=== PATIENT | male | born 1985 | race Caucasian/White ===

== ENCOUNTER 2018-05-18 07:27 | Emergency (ER) | payer BC, OTHER ==
[~2018-05-18 07:27] MED LIST: KET10 PO; LOR5/325 PO
--- NOTE | 2018-05-18 07:42 | ER Report ---
History and Physical Time Seen By MD: 07:42 Hx. of Stated Complaint: RLQ PAIN INTO BACK SUDDEN ONSET LAST NIGHT, VOMITING HPI/ROS 33-year-old otherwise healthy male presents with sudden onset of right sided flank pain that started at 0230 this morning. Also with episodes of vomiting. 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 He denies any abdominal pain. No dysuria or hematuria. No fever or chills. No trauma Remainder of the 14 system rev: Yes Allergies: Coded Allergies: No Known Drug Allergies (Unverified , 02/17/15) Home Meds Active Scripts Hydrocodone Bit/Acetaminophen (HYDROCODON-ACETAMINOPHEN 5-325) 1 Each Tablet, 1 EACH PO Q4H for 5 Days, #12 TAB Prov:KATARZYNA JOY MD 05/18/18 Ibuprofen (IBUPROFEN) 600 Mg Tablet, 1 TAB PO Q6H for 5 Days, #30 TAB Prov:KATARZYNA JOY MD 05/18/18 Ondansetron Hcl (ONDANSETRON HCL) 4 Mg Tablet, 4 MG PO Q4-6H for 3 Days, #14 TAB Prov:KATARZYNA JOY MD 05/18/18 Discontinued Scripts Hydrocodone Bit/Acetaminophen (HYDROCODON-ACETAMINOPHEN 5-325) 1 Each Tablet, 1- 2 EACH PO Q4-6H, #30 TAB Prov:DEANA KILPATRICK MD 02/27/15 Ketorolac Tromethamine (KETOROLAC TROMETHAMINE) 10 Mg Tab, 10 MG PO Q6H, #20 TAB Prov:DEANA KILPATRICK MD 02/27/15 Hydrocodone Bit/Acetaminophen (HYDROCODON-ACETAMINOPHEN 5-325) 1 Each Tablet, 1 EACH PO Q4-6H PRN for PAIN, #12 TAB 0 Refills TAKE ONE TABLET BY MOUTH EVERY 4-6 HOURS NEEDED FOR PAIN Prov:LUISITO CAMPBELL MD 02/17/15 Reviewed Nurses Notes: Yes Hx Smoking: No Smoking Status: Never Smoker Exposure to Second Hand Smoke?: No Hx Substance Use Disorder: No Hx Alcohol Use: No Constitutional Vital Sign - Last 24 Hours 05/18/18 05/18/18 05/18/18 05/18/18 07:34 07:36 07:57 08:00 Temp 98.3 Pulse 68 72 Resp 18 B/P (MAP) 141/96 141/96 (111) 126/93 (104) Pulse Ox 94 94 O2 Delivery Room Air 05/18/18 05/18/18 05/18/18 05/18/18 08:12 08:27 08:30 08:42 Pulse 67 68 72 B/P (MAP) 120/72 (88) Pulse Ox 94 95 96 05/18/18 05/18/18 05/18/18 08:57 09:00 09:12 Pulse 75 75 B/P (MAP) 115/88 (97) Pulse Ox 94 93 Physical Exam General Appearance: The patient is alert, has no immediate need for airway pr otection and no current signs of toxicity. Eyes: Pupils equal and round no injection. Respiratory: Chest is non tender, lungs are clear to auscultation. Cardiac: regular rate and rhythm Gastrointestinal: Abdomen is soft and non tender, no masses, bowel sounds normal. Musculoskeletal: No flank TTP Skin: No rashes or lesions. DIFFERENTIAL DIAGNOSIS: After history and physical exam differential diagnosis was considered for flank pain including but not limited to musculoskeletal causes, kidney stone, pyelonephritis, shingles, and intra-abdominal causes such as diverticulitis and appendicitis. Medical Decision Making Data Points Result Diagram: 05/18/18 0755 05/18/18 0755 Laboratory Hematology Test 05/18/18 07:55 05/18/18 09:44 Red Blood Count 5.67 M/uL (4.00-5.60) Mean Corpuscular Volume 89.7 fL (80.0-96.0) Mean Corpuscular Hemoglobin 31.4 pg (26.0-33.0) Mean Corpuscular Hemoglobin Concent 35.0 g/dL (32.0-36.0) Red Cell Distribution Width 13.3 % (11.5-14.5) Mean Platelet Volume 11.2 fL (7.2-11.1) Neutrophils (%) (Auto) 70.8 % (39.4-72.5) Lymphocytes (%) (Auto) 22.3 % (17.6-49.6) Monocytes (%) (Auto) 6.4 % (4.1-12.4) Eosinophils (%) (Auto) 0.2 % (0.4-6.7) Basophils (%) (Auto) 0.3 % (0.3-1.4) Nucleated RBC Relative Count (auto) 0.0 /100WBC Neutrophils # (Auto) 7.3 K/uL (2.0-7.4) Lymphocytes # (Auto) 2.3 K/uL (1.3-3.6) Monocytes # (Auto) 0.7 K/uL (0.3-1.0) Eosinophils # (Auto) 0.0 K/uL (0.0-0.5) Basophils # (Auto) 0.0 K/uL (0.0-0.1) Nucleated RBC Absolute Count (auto) 0.00 K/uL Sodium Level 141 mmol/L (137-145) Potassium Level 3.8 mmol/L (3.5-5.0) Chloride Level 105 mmol/L (98-107) Carbon Dioxide Level 25 mmol/L (22-30) Blood Urea Nitrogen 10 mg/dl (9-21) Creatinine 0.80 mg/dl (0.66-1.25) Glomerular Filtration Rate Calc > 60.0 Random Glucose 122 mg/dl (75-110) Calcium Level 9.4 mg/dl (8.4-10.2) Total Bilirubin 0.7 mg/dl (0.2-1.3) Aspartate Amino Transf (AST/SGOT) 43 U/L (0-35) Alanine Aminotransferase (ALT/SGPT) 73 U/L (0-56) Alkaline Phosphatase 57 U/L (0-126) Total Protein 7.3 g/dl (6.3-8.2) Albumin 4.2 g/dl (3.5-5.0) Lipase 54 U/L (23-300) Urine Color Yellow Urine Clarity Slightly-cloudy Urine pH 6.0 pH (4.8-9.5) Urine Specific [place] 1.016 Urine Protein Negative mg/dL (NEGATIVE) Urine Glucose (UA) Negative mg/dL (NEGATIVE) Urine Ketones Negative mg/dL (NEGATIVE) Urine Blood Large (NEGATIVE) Urine Nitrite Negative (NEGATIVE) Urine Bilirubin Negative (NEGATIVE) Urine Urobilinogen Negative mg/dL (0.2-1.9) Urine Leukocyte Esterase Negative (NEGATIVE) Urine RBC 92 /HPF (0-2/HPF) Urine WBC 8 /HPF (0-5/HPF) Urine Squamous Epithelial Cells None /LPF (</=FEW) Urine Bacteria Few /HPF (NONE-FEW) Urine Mucus Few /HPF (NONE-FEW) Chemistry Test 05/18/18 07:55 05/18/18 09:44 White Blood Count 10.3 k/uL (4.5-11.0) Red Blood Count 5.67 M/uL (4.00-5.60) Hemoglobin 17.8 g/dL (14.0-18.0) Hematocrit 50.9 % (42.0-52.0) Mean Corpuscular Volume 89.7 fL (80.0-96.0) Mean Corpuscular Hemoglobin 31.4 pg (26.0-33.0) Mean Corpuscular Hemoglobin Concent 35.0 g/dL (32.0-36.0) Red Cell Distribution Width 13.3 % (11.5-14.5) Platelet Count 215 K/uL (150-450) Mean Platelet Volume 11.2 fL (7.2-11.1) Neutrophils (%) (Auto) 70.8 % (39.4-72.5) Lymphocytes (%) (Auto) 22.3 % (17.6-49.6) Monocytes (%) (Auto) 6.4 % (4.1-12.4) Eosinophils (%) (Auto) 0.2 % (0.4-6.7) Basophils (%) (Auto) 0.3 % (0.3-1.4) Nucleated RBC Relative Count (auto) 0.0 /100WBC Neutrophils # (Auto) 7.3 K/uL (2.0-7.4) Lymphocytes # (Auto) 2.3 K/uL (1.3-3.6) Monocytes # (Auto) 0.7 K/uL (0.3-1.0) Eosinophils # (Auto) 0.0 K/uL (0.0-0.5) Basophils # (Auto) 0.0 K/uL (0.0-0.1) Nucleated RBC Absolute Count (auto) 0.00 K/uL Glomerular Filtration Rate Calc > 60.0 Calcium Level 9.4 mg/dl (8.4-10.2) Total Bilirubin 0.7 mg/dl (0.2-1.3) Aspartate Amino Transf (AST/SGOT) 43 U/L (0-35) Alanine Aminotransferase (ALT/SGPT) 73 U/L (0-56) Alkaline Phosphatase 57 U/L (0-126) Total Protein 7.3 g/dl (6.3-8.2) Albumin 4.2 g/dl (3.5-5.0) Lipase 54 U/L (23-300) Urine Color Yellow Urine Clarity Slightly-cloudy Urine pH 6.0 pH (4.8-9.5) Urine Specific [place] 1.016 Urine Protein Negative mg/dL (NEGATIVE) Urine Glucose (UA) Negative mg/dL (NEGATIVE) Urine Ketones Negative mg/dL (NEGATIVE) Urine Blood Large (NEGATIVE) Urine Nitrite Negative (NEGATIVE) Urine Bilirubin Negative (NEGATIVE) Urine Urobilinogen Negative mg/dL (0.2-1.9) Urine Leukocyte Esterase Negative (NEGATIVE) Urine RBC 92 /HPF (0-2/HPF) Urine WBC 8 /HPF (0-5/HPF) Urine Squamous Epithelial Cells None /LPF (</=FEW) Urine Bacteria Few /HPF (NONE-FEW) Urine Mucus Few /HPF (NONE-FEW) Urinalysis Test 05/18/18 09:44 Urine Color Yellow Urine Clarity Slightly-cloudy Urine pH 6.0 pH (4.8-9.5) Urine Specific [place] 1.016 Urine Protein Negative mg/dL (NEGATIVE) Urine Glucose (UA) Negative mg/dL (NEGATIVE) Urine Ketones Negative mg/dL (NEGATIVE) Urine Blood Large (NEGATIVE) Urine Nitrite Negative (NEGATIVE) Urine Bilirubin Negative (NEGATIVE) Urine Urobilinogen Negative mg/dL (0.2-1.9) Urine Leukocyte Esterase Negative (NEGATIVE) Urine RBC 92 /HPF (0-2/HPF) Urine WBC 8 /HPF (0-5/HPF) Urine Squamous Epithelial Cells None /LPF (</=FEW) Urine Bacteria Few /HPF (NONE-FEW) Urine Mucus Few /HPF (NONE-FEW) EKG/Imaging Imaging Results: CT scan of the abdomen and pelvis was obtained. The results of the study are 3mm ureteral calculi at the right UVJ. The study was read by the radiologist. I viewed the images myself on the PACS system. ED Course/Re-evaluation ED Course Sudden onset of right flank pain at 0230 this morning. Also with nausea and vomiting. The pain waxed and waned throughout the morning. No pain in the emergency department. No abdominal pain or fever chills. History and CT scan consistent with the 3 mm stone that is seen at the right UVJ. The patient has been pain free during his stay in the emergency department after receiving Toradol and Zofran for nausea. I will discharge him with ibuprofen, Zofran, and Vicodin in case the pain returns and is not relieved with NSAIDs. He'll follow- up with his primary care physician. Decision to Disposition Date: May 18, 2018 Decision to Disposition Time: 12:26 Depart Departure Latest Vital Signs Vital Signs Date Time Temp Pulse Resp B/P (MAP) Pulse Ox O2 Delivery O2 Flow Rate FiO2 05/18/18 09:12 75 93 05/18/18 09:00 115/88 (97) 05/18/18 07:34 98.3 18 Room Air Impression: Primary Impression: Ureteral calculus, right Condition: Improved Disposition: HOME OR SELF-CARE New Scripts Hydrocodone Bit/Acetaminophen (HYDROCODON-ACETAMINOPHEN 5-325) 1 Each Tablet 1 EACH PO Q4H for 5 Days, #12 TAB Prov: KATARZYNA JOY MD 05/18/18 Ibuprofen (IBUPROFEN) 600 Mg Tablet 1 TAB PO Q6H for 5 Days, #30 TAB Prov: KATARZYNA JOY MD 05/18/18 Ondansetron Hcl (ONDANSETRON HCL) 4 Mg Tablet 4 MG PO Q4-6H for 3 Days, #14 TAB Prov: KATARZYNA JOY MD 05/18/18 Patient Instructions: Kidney Stones (ED) KATARZYNA JOY MD May 18, 2018 07:42
[2018-05-18] MEDS ORDERED: ONDANSETRON 4 MG/2 ML VIAL IVP ONE (07:45)
[2018-05-18] MEDS ORDERED: KETOROLAC 30 MG/ML VIAL IVP ONE (07:45)
[2018-05-18] MEDS ORDERED: NS(*) 0.9% 1000 ML BAG 1,000 ML IV ONE (07:45)
[2018-05-18 08:11] LABS: PLATELET COUNT, AUTOMATED 215 K/uL (150-450)
--- NOTE | 2018-05-18 10:24 | RADIOLOGY IMAGING REPORT ---
FACILITY: [facility] PATIENT NAME: Leonardo Benitez : 1985 MR: [id number] V: [id number] EXAM DATE: ORDERING PHYSICIAN: KATARZYNA JOY TECHNOLOGIST: Location: [facility] [place] Patient: Leonardo Benitez : 1985 Visit/Account:[id number] Date of Sevice: 05/18/2018 ABDOMEN/PELVIS W/O CONTRAST HISTORY: Sudden onset right flank pain and nausea/vomiting. TECHNIQUE: CT abdomen and pelvis without intravenous contrast. One of the following dose optimization techniques was utilized in the performance of this exam: Autom ated exposure control; adjustment of the mA and/or kV according to the patient's size; or use of an i terative reconstruction technique. Specific details can be referenced in the facility's radiology C T exam operational policy. CONTRAST: None. Please note, lack of IV contrast limits evaluation of solid organs. COMPARISON: None. FINDINGS: Visualized lung bases: Mild basilar atelectasis. Hepatobiliary: Suggestion of mild hepatic steatosis. Otherwise negative. Spleen: Negative. Adrenals: Negative. Pancreas: Negative. Kidneys/: There at least 2 punctate nonobstructing calculi within the left kidney measuring up to 2 mm. Note is made of a duplicated right collecting system which joins at or just proximal to the UV J. There is a 3 mm calculus within one of the right ureters proximally, likely the lower pole moiety as there is mild pelviectasis of the inferior collecting system with possible minimal hydronephrosis . No left ureteral calculi identified. No bladder calculi. GI: Negative. Appendix is unremarkable. Vessels/spaces/nodes: Negative. Bones/soft tissues: Postoperative changes from right internal hernia repair. No evidence for residu al/recurrent hernia. There is a small fat-containing left inguinal hernia. Partial visualization of mild/moderate right gynecomastia. IMPRESSION: 1. 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 2. There are least 2 punctate nonobstructing left-sided nephrolithiasis measuring up to 2 mm. 3. Additional incidental/chronic findings, as above. Report Dictated By: Yash Vargas MD at 05/18/2018 10:15 AM Report E-Signed By: Yash Vargas MD at 05/18/2018 10:20 AM [id number]
[2018-05-18] MEDS ORDERED: IBUP600T22 PO (12:34)
[2018-05-18] MEDS ORDERED: ONDA-2 PO (12:34)
[2018-05-18] MEDS ORDERED: HYDR-385 PO (12:34)
[2018-05-18 12:38] VITALS: BP 149/92
== END 2018-05-18 12:44 | disposition home or self-care (01) ==
LOC: ER 07:46
DX: N20.1 Calculus of ureter (principal)
CPT/HCPCS: 74176; 81001; 83690; 85025; 96361; 96374; 96375; 99284; J1885; J2405; J7030; 82040; 82247; 82310; 82374; 82435; 82565; 82947; 84075; 84132; 84155; 84295; 84450; 84460; 84520